=== PATIENT | male | born 1950 | race Caucasian/White ===

== ENCOUNTER 2017-02-04 11:18 | Emergency (ER) | payer OTHER ==
[2017-02-04 13:48] VITALS: BP 147/85
--- NOTE | 2017-02-04 14:47 | UC ---
Hand/Wrist HPI - HPI Summary HPI Summary: Patient presents s/p trauma to the left wrist and forearm, he got caught between a refrigerator and the wall. He no has some redness and pain at the wrist, and over the forearm. He states slight warmth today as well. He denies any pain with movement. He denies fever, chills or red steaks coming off the area. He denies any weakness, numbness or tingling of the extremity. - History Of Current Complaint Chief Complaint: UCUpperExtremity Stated Complaint: WRIST INJURY Time Seen by Provider: 02/04/17 14:20 Hx Obtained From: Patient ?: No Onset/Duration: Gradual Onset, Lasting Days Severity Initially: Mild Severity Currently: Moderate Pain Intensity: 6 Pain Scale Used: 0-10 Numeric Character Of Pain: Dull, Aching Aggravating Factor(s): Other Alleviating: Ice Associated Signs And Symptoms: Positive: Swelling, Redness - Allergies/Home Medications Allergies/Adverse Reactions: Allergies Allergy/AdvReac Type Severity Reaction Status Date / Time No Known Allergies Allergy Verified 02/04/17 12:06 PMH/Surg Hx/FS Hx/Imm Hx Previously Healthy: Yes - Surgical History Surgical History: None - Family History Known Family History: Positive: Hypertension - Social History Occupation: Employed Part-time Lives: Alone Alcohol Use: Rare Substance Use Type: None Smoking Status (MU): Never Smoked Tobacco Review of Systems Musculoskeletal: Myalgia All Other Systems Reviewed And Are Negative: Yes Physical Exam Triage Information Reviewed: Yes Appearance: Well-Appearing Vital Signs: Initial Vital Signs Temp 98.7 F 02/04/17 12:08 Pulse 68 02/04/17 12:08 Resp 16 02/04/17 12:08 BP 139/83 02/04/17 12:08 Pulse Ox 98 02/04/17 12:08 Vital Signs Reviewed: Yes Eye Exam: Normal ENT Exam: Normal Neck exam: Normal Respiratory Exam: Normal Cardiovascular Exam: Normal Musculoskeletal Exam: Normal Skin: Positive: Other - left forearm.wrist volar aspect erythma, slight edema, and warm to tough. Rom, intact in all plantes, neruo without deficits. vasc + radial and ulnar pulses, capillary refill less that thre seconds. Hand/Wrist Course/Dx - Course Course Of Treatment: Patient presents s/p traumtatic injury to the left wrist and he declines xrays today, he understands that I cannot rule out fracture without xrays but because he has no pain with movement he does not feel he needs them today. I did discuss that he can at any time return for xrays, or go to the ER as an alternative. He has superficial cellulitis on exam and is going to be started on Keflex 500 mg qid x 10 days. He also understands that if his symtpoms worsen he needs to go to the ER at once for more imergent treatment that was not indicated today. - Differential Dx/Diagnosis Differential Diagnosis/HQI/PQRI: Cellulitis Provider Diagnoses: cellulitis Discharge - Discharge Plan Condition: Stable Disposition: HOME Prescriptions: Cephalexin CAP* [Keflex CAP*] 500 mg PO QID #40 cap Patient Education Materials: Cellulitis (ED) Referrals: No Primary Care Phys,NOPCP [Primary Care Provider] - Additional Instructions: If your symptoms worsen you will need to go to the ER immediately. We discussed xrays today and per your wishes declined the studies.
== END 2017-02-04 14:35 | disposition home or self-care (01) ==
LOC: UCEAST 11:18
DX: L03.114 Cellulitis of left upper limb (principal); M79.1 Myalgia
CPT/HCPCS: 99212; G0463

== ENCOUNTER 2017-05-23 19:18 | Emergency (ER) | payer OTHER, MEDICARE ==
[2017-05-23] MEDS ORDERED: traMADol TAB* 50 MG PO ONE ×2 (21:13→22:10)
--- NOTE | 2017-05-23 21:32 | RAD ---
Indication: Left upper arm pain after a fall Comparison: None. Technique: 4 views of the left humerus were obtained. Report: The visualized bones of the left upper arm are well-corticated and properly aligned. There is no acute fracture or dislocation seen. There is no focal bony abnormality. IMPRESSION: Normal radiograph of the left humerus. If the patient's symptoms persist, follow-up imaging is recommended
--- NOTE | 2017-05-23 21:32 | RAD ---
INDICATION: Left-sided rib pain after a fall COMPARISON: Chest x-ray dated December 14, 2009 TECHNIQUE: PA and lateral views of the chest were obtained. FINDINGS: The heart and mediastinum are normal in size and contour. The lungs are grossly clear. There is no evidence of large pleural effusion. Degenerative changes of the thoracic spine includes loss of intervertebral disc height and marginal osteophyte formation. The mid-level thoracic bodies appear shortened but there is no definite acute compression fracture and or retropulsion of fragments. There is no radiographic evidence of free air beneath the diaphragm IMPRESSION: NO RADIOGRAPHIC EVIDENCE OF ACUTE CARDIOPULMONARY DISEASE OR ACUTE BONY FRACTURE.
--- NOTE | 2017-05-23 21:44 | ED ---
Upper Extremity Pain - HPI Summary HPI Summary: 66M presents with left rib pain s/p a fall. He tripped on the snow and fell on his left side. no head injury or LOC. no SOB. has lower left rib pain. no nausea or vomiting. no abdominal pain. pain is 10/10 and is worst with deep breathing. is not on blood thinners. states pain worst when moves left arm forehead. no dizziness or headache. no fever. is right handed. has not taken anything for pain. - History of Current Complaint Chief Complaint: EDExtremityUpper Stated Complaint: FALL/INJURY LT SIDE Time Seen by Provider: 05/23/17 21:06 - Allergies/Home Medications Allergies/Adverse Reactions: Allergies Allergy/AdvReac Type Severity Reaction Status Date / Time No Known Allergies Allergy Verified 02/04/17 12:06 PMH/Surg Hx/FS Hx/Imm Hx Endocrine/Hematology History: Denies: Hx Diabetes, Hx Thyroid Disease Cardiovascular History: Reports: Hx Hypertension Respiratory History: Denies: Hx Asthma, Hx Chronic Obstructive Pulmonary Disease (COPD) GI History: Denies: Hx Ulcer - Cancer History Cancer Type, Location and Year: skin cancer removed from right leg 2003 - Immunization History Date of Tetanus Vaccine: UTD Date of Influenza Vaccine: NO Infectious Disease History: No Infectious Disease History: Denies: Hx Clostridium Difficile, Hx Hepatitis, Hx Human Immunodeficiency Virus (HIV), Hx of Known/Suspected MRSA, Hx Shingles, Hx Tuberculosis, Hx Known/ Suspected VRE, Hx Known/Suspected VRSA, History Other Infectious Disease, Traveled Outside the [place] in Last 30 Days - Family History Known Family History: Positive: Hypertension - Social History Alcohol Use: Rare Substance Use Type: Reports: None Smoking Status (MU): Never Smoked Tobacco Review of Systems Negative: Fever Positive: Other - left sided rib pain Negative: Shortness Of Breath Negative: Abdominal Pain All Other Systems Reviewed And Are Negative: Yes Physical Exam Triage Information Reviewed: Yes Vital Signs On Initial Exam: Initial Vitals Temp Pulse Resp BP Pulse Ox 97.8 F 65 16 133/68 96 05/23/17 19:30 05/23/17 19:30 05/23/17 19:30 05/23/17 19:30 05/23/17 19:30 Vital Signs Reviewed: Yes Appearance: Positive: Pain Distress Skin: Positive: Warm, Dry Head/Face: Positive: Normal Head/Face Inspection Eyes: Positive: Normal, Conjunctiva Clear Respiratory/Lung Sounds: Positive: Clear to Auscultation, Breath Sounds Present , Other - tenderness ribs 5-12 left lateral aspect of ribs Cardiovascular: Positive: Normal, RRR Musculoskeletal: Positive: Strength/ROM Intact - left arm, Other - good pulses, capillary refill<2 secs Neurological: Positive: Normal Psychiatric: Positive: Normal - Bridget Coma Scale Coma Scale Total: 15 Diagnostics - Vital Signs Vital Signs Temp Pulse Resp BP Pulse Ox 05/23/17 19:30 97.8 F 65 16 133/68 96 - Laboratory Lab Statement: Any lab studies that have been ordered have been reviewed, and results considered in the medical decision making process. - Radiology chest Xray Interpretation: No Acute Changes Radiology Interpretation Completed By: Radiologist humerus Xray Interpretation: No Acute Changes Radiology Interpretation Completed By: Radiologist Course/Dx - Course Course Of Treatment: 66M presents with left rib pain s/p a fall. He tripped on the snow and fell on his left side. no head injury or LOC. no SOB. has lower left rib pain. no nausea or vomiting. no abdominal pain. pain is 10/10 and is worst with deep breathing. is not on blood thinners. states pain worst when moves left arm forehead. no dizziness or headache. no fever. is right handed. has not taken anything for pain. on exam tenderness over ribs 5-12 left lateral ribs. nontender abdomen. no flank pain. xray ribs normal. told to take deep breaths and to follow up with primary. patient understand and agrees with plan. - Diagnoses Differential Diagnosis/HQI/PQRI: Positive: Fracture (Closed), Strain, Sprain Provider Diagnoses: Rib pain on left side Discharge - Discharge Plan Condition: Good Disposition: HOME Prescriptions: Acetaminophen TAB* [Tylenol TAB*] 650 mg PO Q6H PRN #20 tab PRN Reason: Pain Patient Education Materials: Rib Contusion (ED) Referrals: No Primary Care Phys,NOPCP [Primary Care Provider] - Additional Instructions: Take deep breath throughout the day Take Ibuprofen or Tylenol for pain every 6 hours Follow up with primary care physician within 5 days Return to ED if develop new productive cough, fever, or any new or worsening symptoms
[2017-05-23 22:24] VITALS: BP 141/64
== END 2017-05-23 22:23 | disposition home or self-care (01) ==
LOC: ED 19:18
DX: S29.8XXA Other specified injuries of thorax, initial encounter (principal); W00.0XXA Fall on same level due to ice and snow, initial encounter; Y93.9 Activity, unspecified
CPT/HCPCS: 71020; 99282; A9270-GY